=== PATIENT | female | born 1990 | race African-American/Black ===

== ENCOUNTER 2022-10-05 18:09 | Emergency (ER) | payer OTHER, SELFPAY ==
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
[2022-10-05 18:28] VITALS: BP 118/68; PULSE 78; RESP 16; TEMP 36.3; O2SAT 100
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
[2022-10-05 20:49] VITALS: PULSE 70; RESP 16; O2SAT 99
== END 2022-10-05 20:49 | disposition home or self-care (01) ==
PROVIDERS: Emergency Provider Physician Assistant
DX: S99.911A Unspecified injury of right ankle, initial encounter (principal); V43.52XA Car driver injured in collision with other type car in traffic accident, initial encounter
CPT/HCPCS: 73610; 99283

== ENCOUNTER 2022-11-16 14:59 | Outpatient (CLI) | payer OTHER, SELFPAY ==
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
== END 2022-11-16 15:00 | disposition home or self-care (01) ==
DX: S93.491A Sprain of other ligament of right ankle, initial encounter (principal); X58.XXXA Exposure to other specified factors, initial encounter
CPT/HCPCS: 73721